=== PATIENT | male | born 1985 | race Caucasian/White ===

== ENCOUNTER 2024-10-31 13:53 | Outpatient (RCR) | payer BC, SELFPAY | END 2024-11-25 08:06 | disposition home or self-care (01) | LOC: RPT 13:53 | PROVIDERS: ATTENDING PHYSICIAN Physician Assistant Surgical; FAMILY PHYSICIAN Physician Assistant Medical | DX: S83.411S Sprain of medial collateral ligament of right knee, sequela (principal); M22.41 Chondromalacia patellae, right knee; Z73.6 Limitation of activities due to disability; R26.89 Other abnormalities of gait and mobility | CPT/HCPCS: 97110; 97140; 97162 ==

== ENCOUNTER → 2025-07-19 07:57 | Outpatient (REF) | payer BC, SELFPAY ==
[2025-07-19 09:53] LABS: ALT (SGPT) 35 U/L (0-50); AST (SGOT) 25 U/L (17-59); Albumin 4.6 g/dl (3.5-5.0); Alkaline Phosphatase 97 U/L (38-126); Blood Urea Nitrogen 12 mg/dl (9-20); Calcium 9.5 mg/dl (8.4-10.2); Carbon Dioxide 28 mmol/L (22-30); Chloride 102 mmol/L (98-107); Glucose 91 mg/dl (70-99); HDL Cholesterol 78 mg/dl; LDL Cholesterol, Calculated 102 mg/dl; Potassium 4.3 mmol/L (3.5-5.1); Sodium 136 mmol/L (135-145); Total Protein 7.2 g/dl (6.3-8.2); Very Low Density Lipoprotein 33 mg/dl (0-30); eGFR > 60.00
== END ==
LOC: HWLAB 07:57
PROVIDERS: ATTENDING PHYSICIAN Physician Assistant Medical
DX: E78.00 Pure hypercholesterolemia, unspecified (principal)
CPT/HCPCS: 36415; 80053; 80061